=== PATIENT | male | born 1955 | race Caucasian/White ===

== ENCOUNTER → 2017-01-09 | Outpatient (CLI) | payer BC, OTHER ==
[2017-01-09 13:47] LABS: ESTIMATED AVERAGE GLUCOSE 146 mg/dl; HA1C FLAG Normal (Normal); THYROID STIMULATING HORMONE 0.039 uIu/ml (0.300-4.500)
== END | disposition home or self-care (01) ==
LOC: C.LAB 12:23
DX: E03.9 Hypothyroidism, unspecified (principal); E11.9 Type 2 diabetes mellitus without complications; E78.5 Hyperlipidemia, unspecified

== ENCOUNTER 2024-05-07 01:58 | Inpatient (IN) ==
[2024-05-07] MEDS: fentaNYL citrate PF 100 MCG/2 ML VIAL IV PRN (02:39)
[2024-05-07] MEDS: ONDANSETRON INJ 2 MG/ML 2 ML VIAL IV STA (02:39)
[2024-05-07 02:51] LABS: Basophils # (auto) 0.09 K/uL (0.00-0.20); Basophils % (auto) 0.9 %; Eosinophils # (auto) 0.12 K/uL (0.00-0.50); Eosinophils % (auto) 1.1 %; Hematocrit (blood only) 41.1 % (42.0-52.0); Hemoglobin 14.5 g/dl (14.0-18.0); Immature Granulocytes # (auto) 0.04 K/uL (0.01-0.20); Immature Granulocytes % (auto) 0.4 %; Lymphocytes # (auto) 1.02 K/uL (1.20-3.40); Lymphocytes % (auto) 9.8 %; Mean Corpuscular Hemoglobin 31.1 pg (25.0-34.0); Mean Corpuscular Hgb Conc 35.3 g/dL (32.0-36.0); Mean Corpuscular Volume 88.2 fL (80.0-100.0); Mean Platelet Volume 9.7 fL (9.4-12.4); Monocytes # (auto) 0.99 K/uL (0.11-0.59); Monocytes % (auto) 9.5 %; Neutrophils # (auto) 8.18 K/uL (1.40-6.50); Neutrophils % (auto) 78.3 %; Platelet Count 155 K/uL (130-400); RDW Coefficient of Variation 12.9 % (11.5-14.5); RDW Standard Deviation 41.9 fL (36.4-46.3); Red Blood Count 4.66 M/uL (4.70-6.10); White Blood Count 10.44 K/ul (4.8-10.8)
[2024-05-07 03:05] LABS: Albumin Globulin Ratio 1.7 (0.9-2); Albumin Level 4.4 gm/dl (3.4-5.0); BUN Creatinine Ratio 16.3 (10-20); Bilirubin,Total 0.7 mg/dl (0.2-1.0); Creatinine Clr Calc Pharmacy 103.1 ml/min; Est GFR (African American) 92.7 ml/min; Globulin 2.6 gm/dl (2.5-4.0); Potassium 3.7 mmol/L (3.5-5.1)
--- NOTE | 2024-05-07 03:18 | Emergency Department Note ---
History of Present Illness General Chief complaint: Flank Pain Stated complaint: FLANK PAIN Time Seen by Provider: 05/07/24 02:04 History of Present Illness Maximum Pain Intensity: 7 This 68-year-old male presents ER complaining of severe left flank pain that radiates around. Patient denies fever, chills, trauma to the area, urinary symptoms, history of kidney stones, rash, testicular pain, penile pain. No history of similar symptoms in the past. Pain started a few hours ago. Home Medications Medication Instructions Recorded Confirmed Type blood-glucose meter (OneTouch #1 ea 11/01/22 05/07/24 Rx Verio Flex Start kit) blood sugar diagnostic (OneTouch #100 ea 05/06/23 05/07/24 Rx Verio test strips) pen needle, diabetic 32 gauge x #200 ea 05/29/23 05/07/24 Rx 5/32" (BD Jessica 2nd Gen Pen Needle) multivitamin 1 tab PO DAILY 06/09/23 05/07/24 History lisinopril 5 mg tablet 5 mg PO QAM #90 tabs 08/26/23 05/07/24 Rx pioglitazone 30 mg tablet 30 mg PO QAM #90 tabs 02/25/24 05/07/24 Rx Mounjaro 10 mg/0.5 mL subcutaneous 10 mg (0.5 mL) subcut WK #2 mL 04/26/24 05/07/24 Rx pen injector (tirzepatide) insulin aspar prot-insulin aspart 55 unit (0.55 mL) subcut BID #30 mL 04/26/24 05/07/24 Rx 100 unit/mL (70-30) subcutaneous pen (Novolog Mix 70-30FlexPen U-100) metformin 500 mg tablet,extended 1,000 mg (2 x 500 mg) PO BID #360 04/30/24 05/07/24 Rx release 24 hr tabs levothyroxine 150 mcg tablet 150 mcg PO QAM #90 tabs 05/03/24 05/07/24 Rx rosuvastatin 20 mg tablet 20 mg PO QPM 05/07/24 05/07/24 History Allergies Allergy/AdvReac Type Severity Reaction Status Date / Time Penicillins Allergy Unknown HAPPENED Verified 02/16/24 14:17 A BABY Past Med/Surg History Problem List (Updated 05/07/24 @ 03:44 by Gabrielle Dahl PA-C) Ureterolithiasis (Acute) Renal colic on left side (Acute) Obesity Type 2 diabetes mellitus with obesity Hypothyroid Sleep apnea on cpap Dyslipidemia SALINAS (nonalcoholic steatohepatitis) Medical History Umbilical hernia Diverticulosis Colonic polyp Actinic keratosis Giant cell granuloma Cataract Surgical History S/P colonoscopy 09/2022 repeat 5 yrs History of tonsillectomy and adenoidectomy History of cataract surgery R eye Family History Father Brain cancer type of brain cancer not sure what Stomach cancer Mother Diabetes Hypertension Myocardial infarction CHF (congestive heart failure) Sister ALS (amyotrophic lateral sclerosis) Denies family history of Ovarian cancer Prostate cancer Breast cancer Colorectal cancer Social History Smoking Status: Never smoker Second Hand Exposure: No; Do You Dip or Chew Tobacco: No; Hx Alcohol Use: No Hx Substance Use: No Preferred Language: [place] Islander Communication Ability: Effective Visual Impairment: Limited Hearing Ability: Normal marital status: Current Living Situation: Spouse current occupational status: employed How many Children do You have: 2 Feels Safe at Home: Yes Childhood Exposure to Second-Hand Smoke: Yes caffeine: Yes (diet soda, iced tea) Dental Care, Regularly: Yes Physical Activity Frequency: Daily Physical Activity Frequency Comment: walks 10,000-15,000 steps daily Seatbelt Use: always Sunscreen Use: Yes Assistive Devices: Glasses Review of Systems A total of 10 systems reviewed and were otherwise negative Physical Exam Vital Signs Vital Signs - 24 hr 05/07/24 02:01 05/07/24 03:00 05/07/24 04:00 Temperature 36.7 C Temperature Source Temporal Artery Scan Pulse Rate 102 H Pulse Rate [Right Finger] 94 H 92 H Pulse Rhythm [Right Finger] Regular Respiratory Rate 18 18 Respiratory Effort / Characteristics Non-Labored Respiratory Depth Normal Respiratory Pattern Regular Blood Pressure 138/81 Blood Pressure [Left Arm] 142/78 H 138/79 Blood Pressure Mean 100 Blood Pressure Mean [Left Arm] 99 98 Blood Pressure Position [Left Arm] Lying Pulse Oximetry 97 95 94 Oxygen Delivery Method Room Air Room Air Sepsis Recent Fever Within 48 Hours No Sepsis New/Unexplained Change in Mental Status No Sepsis Action Taken by Nursing No Action Required 05/07/24 05:00 Temperature Temperature Source Pulse Rate Pulse Rate [Right Finger] 97 H Pulse Rhythm [Right Finger] Respiratory Rate 22 Respiratory Effort / Characteristics Respiratory Depth Respiratory Pattern Blood Pressure Blood Pressure [Left Arm] 105/64 Blood Pressure Mean Blood Pressure Mean [Left Arm] 77 Blood Pressure Position [Left Arm] Pulse Oximetry 95 Oxygen Delivery Method Sepsis Recent Fever Within 48 Hours Sepsis New/Unexplained Change in Mental Status Sepsis Action Taken by Nursing VITALS: Vitals are noted on the nurse's note and reviewed by myself. Vital signs stable. GENERAL: Pleasant gentleman, in no acute distress, nondiaphoretic, well- developed well-nourished. SKIN: Capillary reflex less than 2 seconds. HEENT: Normocephalic. PERRLA. EOMI. Nares patent. Mucous membranes moist. Neck is supple without nuchal rigidity. HEART: Regular rate and rhythm LUNGS: Clear to auscultation bilaterally without wheezes, rales or rhonchi. No retractions or accessory muscle use. ABDOMEN: Positive bowel sounds x 4. Normal tympanic percussion. Soft, nontender, without masses or organomegaly. Birch sign negative. No guarding or rebound tenderness. no CVA tenderness MUSCULOSKELETAL: No gross musculoskeletal defects. NEURO: Patient was alert and oriented to person place and time. No focal neurological deficits. Course Administered Medications Fentanyl Citrate (Fentanyl Citrate Pf 100 Mcg/2 Ml Vial) 50 mcg IV Q15M PRN PRN Reason: Pain Stop: 05/21/24 02:13 Last Admin: 05/07/24 02:39 Dose: 50 mcg Documented By: ARIADNA Discontinued Medications Ioversol (Optiray 320 100ml) 92 ml IV ONCE ONE Stop: 05/07/24 03:31 Last Admin: 05/07/24 03:31 Dose: 92 ml Documented By: VIRGINIE Ketorolac Tromethamine (Ketorolac Tromethamine 15 Mg/Ml Vial) 10 mg IV NOW STA Stop: 05/07/24 03:43 Last Admin: 05/07/24 03:53 Dose: 10 mg Documented By: ARIADNA Ondansetron HCl (Ondansetron Inj 2 Mg/Ml 2 Ml Vial) 4 mg IV NOW STA Stop: 05/07/24 02:15 Last Admin: 05/07/24 02:39 Dose: 4 mg Documented By: Medical Decision Making Medical Records Attestation: I reviewed the patient's medical records. Home Medications Current Medication List: was personally reviewed by me Laboratory Data Attestation: I reviewed the patient's lab results. 05/07/24 02:30 05/07/24 02:30 Lab Results 05/07/24 05/07/24 Range/Units 02:15 02:30 WBC 10.44 (4.8-10.8) K/ul RBC 4.66 L (4.70-6.10) M/uL Hgb 14.5 (14.0-18.0) g/dl Hct 41.1 L (42.0-52.0) % MCV 88.2 (80.0-100.0) fL MCH 31.1 (25.0-34.0) pg MCHC 35.3 (32.0-36.0) g/dL RDW Std Deviation 41.9 (36.4-46.3) fL RDW Coeff of Leonidas 12.9 (11.5-14.5) % Plt Count 155 (130-400) K/uL MPV 9.7 (9.4-12.4) fL Immature Gran % (Auto) 0.4 % Neut % (Auto) 78.3 % Lymph % (Auto) 9.8 % Frontier % (Auto) 9.5 % Eos % (Auto) 1.1 % Baso % (Auto) 0.9 % Neut # (Auto) 8.18 H (1.40-6.50) K/uL Lymph # (Auto) 1.02 L (1.20-3.40) K/uL Frontier # (Auto) 0.99 H (0.11-0.59) K/uL Eos # (Auto) 0.12 (0.00-0.50) K/uL Baso # (Auto) 0.09 (0.00-0.20) K/uL Immature Gran # (Auto) 0.04 (0.01-0.20) K/uL Sodium 138 (136-145) mmol/L Potassium 3.7 (3.5-5.1) mmol/L Chloride 106 (98-107) mmol/L Carbon Dioxide 22 (21-32) mmol/L Anion Gap 10 (3-11) BUN 16 (6-23) mg/dl Creatinine 0.98 (0.6-1.4) mg/dl Est Cr Clr Drug Dosing 103.1 ml/min Est GFR ( Amer) 92.7 ml/min Est GFR (Non-Af Amer) 80.0 ml/min BUN/Creatinine Ratio 16.3 (10-20) Glucose 189 H (70-99(Fasting)) mg/dl Calcium 9.0 (8.6-10.3) mg/dl Total Bilirubin 0.7 (0.2-1.0) mg/dl AST 36 (13-39) U/L ALT 34 (7-52) U/L Alkaline Phosphatase 57 (34-104) U/L Total Protein 7.0 (6.0-8.3) gm/dl Albumin 4.4 (3.4-5.0) gm/dl Globulin 2.6 (2.5-4.0) gm/dl Albumin/Globulin Ratio 1.7 (0.9-2) Lipase 47 (11-82) U/L Urine Color Yellow Urine Appearance Cloudy A (Clear) Urine pH 5.5 (4.5-7.5) Ur Specific [place] 1.029 (1.000-1.030) Urine Protein Trace H (Negative) Urine Glucose (UA) 3+ H (Negative) Urine Ketones 1+ H (Negative) Urine Blood 3+ H (Negative) Urine Nitrite Negative (Negative) Urine Bilirubin Negative (Negative) Urine Urobilinogen Negative (Negative) Ur Leukocyte Esterase Negative (Negative) Urine WBC (Auto) 0-5 (0-5) /hpf Urine RBC (Auto) 11-20 H (0-2) /hpf U Hyaline Cast (Auto) 0-2 (0-2) /lpf U Epithel Cells (Auto) 0-2 (0-2) /hpf Urine Bacteria (Auto) None Seen (None Seen) Imaging Data Attestation: I personally reviewed and interpreted this imaging study as follows: Radiologist's Impression: Abdomen/Pelvis CT 05/07/24 02:14 Exam(s): CT ABDOMEN + PELVIS With Contrast IV Amt: 92 ml opti 320 EXAM: CT Abdomen and Pelvis With Intravenous Contrast CLINICAL HISTORY: left flank/abd pain. TECHNIQUE: Axial computed tomography images of the abdomen and pelvis with intravenous contrast. CTDI is 28.14 mGy and DLP is 1626.47 mGy-cm. Automated exposure control was utilized for the study. A dose lowering technique was utilized adhering to the principles of ALARA. CONTRAST: Patient received 92 ml opti 320 of IV contrast COMPARISON: No relevant prior studies available. FINDINGS: Lung bases: Unremarkable. No mass. No consolidation. ABDOMEN: Liver: Hepatic steatosis. Gallbladder and bile ducts: Unremarkable. No calcified stones. No ductal dilation. Pancreas: Unremarkable. No mass. No ductal dilation. Spleen: Unremarkable. No splenomegaly. Adrenals: Unremarkable. No mass. Kidneys and ureters: 6.3 mm proximal left ureteral stone approximately 2 cm beyond the UPJ with mild left hydronephrosis and perinephric fat stranding. Kidneys demonstrate normal enhancement bilaterally. No additional nephrolithiasis identified bilaterally. No right sided hydronephrosis. Stomach and bowel: Stomach is decompressed. No gastric mucosal thickening. No bowel obstruction. No asymmetric bowel mucosal abnormality. Mild to moderate stool burden. PELVIS: Appendix: A normal caliber appendix is noted medial to the cecum. Bladder: Unremarkable. No mass. Reproductive: Unremarkable as visualized. ABDOMEN and PELVIS: Intraperitoneal space: Unremarkable. No free air. No significant fluid collection. Bones/joints: No acute fracture. No dislocation. Soft tissues: Stable periumbilical fat-containing hernia, slightly increased in size, now measuring 1 cm in transverse diameter. Vasculature: Unremarkable. No abdominal aortic aneurysm. Lymph nodes: Unremarkable. No enlarged lymph nodes. IMPRESSION: 6.3 mm proximal left ureteral stone approximately 2 cm beyond the UPJ with mild left hydronephrosis and perinephric fat stranding. Electronically signed by: Zion Ramos MD 05/07/24 04:13 AM [facility] Narrative Prior records/ancillary studies reviewed. Triage Nursing notes reviewed. Additional history obtained from the nursing The patient's history was concerning for flank pain. Differential diagnosis: Etiologies such as renal colic, appendicitis, diverticulitis, mesenteric ischemia, aortic pathology, infections, inflammatory bowel disease, PUD, biliary pathology, UTI, as well as others were entertained. Physical examination findings: As above. ER treatment provided: Fentanyl, Zofran, IV fluids On reassessment the patient felt better. Diagnostic interpretation by me: The labs Independently Interpreted by myself revealed no worrisome leukocytosis. Urinalysis revealed There was no sign of UTI. Mild hyperglycemia without DKA Imaging studies: Imaging as above Consultation: A consultation was placed with the hospitalist. The case was discussed and diagnostics were reviewed. The patient was evaluated in the ER for further treatment. It appears that the patient has isolated renal colic from a left sided stone. Patient was still moderate amount of pain. Medicine is consulted case discussed. He will be admitted to the medical service. By the evaluation outlined above emergent etiologies such as appendicitis, diverticulitis, mesenteric ischemia, aortic pathology, infections, inflammatory bowel disease, PUD, biliary pathology, UTI, as well as others were deemed relatively unlikely. The pt informed about the findings as listed above. All questions were answered and pleased with the treatment. The chart was completed utilizing [employer] Speech voice recognition software. Grammatical errors, random word insertions, pronoun errors, and incomplete sentences are an occassional consequence of this system due to software limitations, ambient noise, and hardware issues. Any formal questions or concerns about the content, text, or information contained within the body of this dictation should be directly addressed to the physician night assistant for clarification. Attending Attestation: I Perez Parada MD I have reviewed the advanced practitioner's documentation and agree with the plan of care. I accept the responsibility for the associated risk of managing the patient. Impression & Plan Renal colic on left side, Ureterolithiasis Discharge Plan Visit Data Chief Complaint: Flank Pain Stated Complaint: FLANK PAIN ED Provider: Perez Parada ED Midlevel Provider: Gabrielle Dahl Discharge Problem: Renal colic on left side, Ureterolithiasis Patient Disposition: Admitted As Inpatient Condition: Good Discharge Instructions Prabhakar/Other Patient Handouts: ED [facility] Forms Stand Alone Forms: Important Visit Information Prescriptions Prescriptions: No Action (DME) OneTouch Verio test strips Strip See Rx Instructions .Route Qty: 100 2RF Rx Instructions: twice daily (DME) pen needle, diabetic [BD Jessica 2nd Gen Pen Needle] 32 gauge x 5/32" needle See Rx Instructions .Route Qty: 200 3RF Rx Instructions: As directed to inject insulin two times a day lisinopril 5 mg tablet 5 mg PO QAM Qty: 90 3RF pioglitazone 30 mg tablet 30 mg PO QAM Qty: 90 3RF insulin asp prt-insulin aspart [Novolog Mix 70-30FlexPen U-100] 100 unit/mL (70-30) insulin pen 55 unit subcut BID Qty: 30 3RF Rx Instructions: or as directed before meals Mounjaro 10 mg/0.5 mL pen injector 10 mg subcut WK Qty: 2 3RF metformin 500 mg tablet extended release 24 hr 1,000 mg PO BID Qty: 360 3RF Rx Instructions: *Replaces Xigduo* levothyroxine 150 mcg tablet 150 mcg PO QAM Qty: 90 1RF multivitamin Tablet 1 tab PO DAILY (DME) blood-glucose meter [OneTouch Verio Flex Start] Kit See Rx Instructions .Route Qty: 1 0RF Rx Instructions: twice daily rosuvastatin 20 mg tablet 20 mg PO QPM Referrals Referrals: Gokul Carnes DO [Primary Care Provider] - Matt Stafford MD [Physician] -
[2024-05-07] MEDS: OPTIRAY 320 100ml IV ONE (03:31)
[2024-05-07 03:36] LABS: Appearance Urine Cloudy (Clear); Bacteria Urine Automated None Seen (None Seen); Bilirubin Urine Negative (Negative); Blood Urine 3+ (Negative); Cast Urine Automated 0-2 /lpf (0-2); Color Urine Yellow; Epithelial Cell Urine Auto 0-2 /hpf (0-2); Glucose Urine UA 3+ (Negative); Ketones Urine 1+ (Negative); Leukocyte Esterase Urine Negative (Negative); Nitrite Urine Negative (Negative); Protein Urine Trace (Negative); Specific Gravity Urine 1.029 (1.000-1.030); Urobilinogen Urine Negative (Negative); WBC Urine Automated 0-5 /hpf (0-5); pH Urine 5.5 (4.5-7.5)
[2024-05-07] MEDS: KETOROLAC TROMETHAMINE 15 MG/ML VIAL IV STA (03:53)
--- NOTE | 2024-05-07 04:13 | CT Scan Report ---
Exam(s): CT ABDOMEN + PELVIS With Contrast IV Amt: 92 ml opti 320 EXAM: CT Abdomen and Pelvis With Intravenous Contrast CLINICAL HISTORY: left flank/abd pain. TECHNIQUE: Axial computed tomography images of the abdomen and pelvis with intravenous contrast. CTDI is 28.14 mGy and DLP is 1626.47 mGy-cm. Automated exposure control was utilized for the study. A dose lowering technique was utilized adhering to the principles of ALARA. CONTRAST: Patient received 92 ml opti 320 of IV contrast COMPARISON: No relevant prior studies available. FINDINGS: Lung bases: Unremarkable. No mass. No consolidation. ABDOMEN: Liver: Hepatic steatosis. Gallbladder and bile ducts: Unremarkable. No calcified stones. No ductal dilation. Pancreas: Unremarkable. No mass. No ductal dilation. Spleen: Unremarkable. No splenomegaly. Adrenals: Unremarkable. No mass. Kidneys and ureters: 6.3 mm proximal left ureteral stone approximately 2 cm beyond the UPJ with mild left hydronephrosis and perinephric fat stranding. Kidneys demonstrate normal enhancement bilaterally. No additional nephrolithiasis identified bilaterally. No right sided hydronephrosis. Stomach and bowel: Stomach is decompressed. No gastric mucosal thickening. No bowel obstruction. No asymmetric bowel mucosal abnormality. Mild to moderate stool burden. PELVIS: Appendix: A normal caliber appendix is noted medial to the cecum. Bladder: Unremarkable. No mass. Reproductive: Unremarkable as visualized. ABDOMEN and PELVIS: Intraperitoneal space: Unremarkable. No free air. No significant fluid collection. Bones/joints: No acute fracture. No dislocation. Soft tissues: Stable periumbilical fat-containing hernia, slightly increased in size, now measuring 1 cm in transverse diameter. Vasculature: Unremarkable. No abdominal aortic aneurysm. Lymph nodes: Unremarkable. No enlarged lymph nodes. IMPRESSION: 6.3 mm proximal left ureteral stone approximately 2 cm beyond the UPJ with mild left hydronephrosis and perinephric fat stranding. Electronically signed by: Zion Ramos MD 05/07/24 04:13 AM
--- NOTE | 2024-05-07 05:02 | History & Physical Report ---
Date of Service May 07, 2024 Assessment & Plan (1) Ureterolithiasis: Plan: -CT abdomen pelvis showed a 6.3 mm proximal left ureteral stone. Left mild hydronephrosis and perinephritic fat stranding. -CBC and CMP benign. -UA showing 3+ blood and 3+ glucose. -IV fluids, prn pain meds, prn antiemetics -Started on ceftriaxone and tamsulosin. -Will collect blood cultures prior to antibiotics. -Urology consulted, n.p.o. at this time. (2) Type 2 diabetes mellitus with obesity: Plan: -Patient's home regimen held on admission -Continue BSG checks, sliding-scale insulin, hypoglycemic protocol (3) Hypothyroid: Plan: -Holding home levothyroxine while NPO. (4) Sleep apnea: Plan: -CPAP at night. Patient brought in his CPAP. (5) Dyslipidemia: Plan: -Holding home rosuvastatin while NPO. Plan Fluids: LR at 125 mL an hour Nutrition: N.p.o. Code status: Full code DVT ppx: SCDs Dispo: med/surg History of Present Illness Chief Complaint: left renal colic, ureterolithiasis Primary Care Provider: Gokul Carnes DO Patient is a 68-year-old male with past medical history of hypothyroidism, sleep apnea, dyslipidemia, and SALINAS who presents to the hospital with left renal colic. Patient started to have left-sided back/flank pain. He states that he he tried to sleep but then was unable to do came to the ED. Denies any passing of stone. Denies any fever, chills, shortness of breath, fevers, dysuria, urinary frequency or urgency. Allergies Allergy/AdvReac Type Severity Reaction Status Date / Time Penicillins Allergy Unknown HAPPENED Verified 02/16/24 14:17 A BABY Home Medications Medication Instructions Recorded Confirmed Type blood-glucose meter (OneTouch #1 ea 11/01/22 05/07/24 Rx Verio Flex Start kit) blood sugar diagnostic (OneTouch #100 ea 05/06/23 05/07/24 Rx Verio test strips) pen needle, diabetic 32 gauge x #200 ea 05/29/23 05/07/24 Rx 5/32" (BD Jessica 2nd Gen Pen Needle) multivitamin 1 tab PO DAILY 06/09/23 05/07/24 History lisinopril 5 mg tablet 5 mg PO QAM #90 tabs 08/26/23 05/07/24 Rx pioglitazone 30 mg tablet 30 mg PO QAM #90 tabs 02/25/24 05/07/24 Rx Mounjaro 10 mg/0.5 mL subcutaneous 10 mg (0.5 mL) subcut WK #2 mL 04/26/24 05/07/24 Rx pen injector (tirzepatide) insulin aspar prot-insulin aspart 55 unit (0.55 mL) subcut BID #30 mL 04/26/24 05/07/24 Rx 100 unit/mL (70-30) subcutaneous pen (Novolog Mix 70-30FlexPen U-100) metformin 500 mg tablet,extended 1,000 mg (2 x 500 mg) PO BID #360 04/30/24 05/07/24 Rx release 24 hr tabs levothyroxine 150 mcg tablet 150 mcg PO QAM #90 tabs 05/03/24 05/07/24 Rx rosuvastatin 20 mg tablet 20 mg PO QPM 05/07/24 05/07/24 History Past Med/Surg History Problem List (Updated 05/07/24 @ 03:44 by Gabrielle Dahl PA-C) Ureterolithiasis (Acute) Renal colic on left side (Acute) Obesity Type 2 diabetes mellitus with obesity Hypothyroid Sleep apnea on cpap Dyslipidemia SALINAS (nonalcoholic steatohepatitis) Medical History Umbilical hernia Diverticulosis Colonic polyp Actinic keratosis Giant cell granuloma Cataract Surgical History S/P colonoscopy 09/2022 repeat 5 yrs History of tonsillectomy and adenoidectomy History of cataract surgery R eye Family History Father Brain cancer type of brain cancer not sure what Stomach cancer Mother Diabetes Hypertension Myocardial infarction CHF (congestive heart failure) Sister ALS (amyotrophic lateral sclerosis) Denies family history of Ovarian cancer Prostate cancer Breast cancer Colorectal cancer Social History Smoking Status: Never smoker Second Hand Exposure: No; Do You Dip or Chew Tobacco: No; Hx Alcohol Use: No Hx Substance Use: No Preferred Language: [place]ish Communication Ability: Effective Visual Impairment: Limited Hearing Ability: Normal marital status: Current Living Situation: Spouse current occupational status: employed How many Children do You have: 2 Feels Safe at Home: Yes Childhood Exposure to Second-Hand Smoke: Yes caffeine: Yes (diet soda, iced tea) Dental Care, Regularly: Yes Physical Activity Frequency: Daily Physical Activity Frequency Comment: walks 10,000-15,000 steps daily Seatbelt Use: always Sunscreen Use: Yes Assistive Devices: Glasses Review of Systems Review of Systems: All systems reviewed & are unremarkable except as noted in Subjective Physical Exam Physical Exam: Constitutional: well-appearing, no acute distress HEENT: NCAT, no conjunctival injection CV: regular rhythm, no murmur appreciated, extremities well-perfused, no LE edema Resp: CTABL, no wheezes/rales/rhonchi appreciated, no increased work of breathing GI: soft, nondistended, nontender, BS normoactive MSK: Left-sided costovertebral tenderness, left flank pain Skin: warm, dry, no rash appreciated Neuro: alert, oriented, no focal neurologic deficit appreciated Results & Data Results & Data Vital Signs (Past 12 Hours) Vital Signs Temp Pulse BP Pulse Ox O2 Del Method 05/07/24 02:01 36.7 C 102 H 138/81 97 Room Air Supervising Physician Co-Signing Physician Notes Attending addendum: I have supervised the medical residents activities, and agree with the H&P unless as otherwise noted. Assessment and Plan: 6.3 mm proximal left ureteral stone/mild left hydronephrosis- NPO Follow urine culture and sensitivity Ceftriaxone 2 g IV daily Start tamsulosin 0.4 mg every morning Pain control as noted Consult urology Diabetes mellitus- Hold metformin, Mounjaro and pioglitazone Hold 70-30 55 twice daily as is nonformulary Placed on glargine 20 units subcu twice daily Placed on Accu-Cheks with NovoLog SSI
[2024-05-07] MEDS ORDERED: GLUCOSE 40% GEL 15 GM TUBE PO PRN (05:49)
[2024-05-07] MEDS ORDERED: GLUCOSE 10 TAB/TUBE PO PRN (05:49)
[2024-05-07] MEDS ORDERED: CARBOHYDRATES FOR HYPOGLYCEMIA PO PRN (05:49)
[2024-05-07] MEDS ORDERED: GLUCAGON FOR INJ 1 MG VIAL SQ PRN (05:49)
[2024-05-07] MEDS ORDERED: DEXTROSE 50% 50 ML SYRINGE IV PRN (05:49)
[2024-05-07] MEDS ORDERED: ONDANSETRON INJ 2 MG/ML 2 ML VIAL IV PRN (05:49)
[2024-05-07] MEDS ORDERED: KETOROLAC TROMETHAMINE 15 MG/ML VIAL IV PRN (05:49)
[2024-05-07] MEDS: LACTATED RINGER'S 1,000 ML IV SCH (06:04)
[2024-05-07] MEDS: TAMSULOSIN HCL 0.4 MG CAP PO ONE (06:16)
--- NOTE | 2024-05-07 06:22 | Billing Data ---
Date of Service May 07, 2024 Coding Level of Care Code 79277 INT INP/OBS CARE
[2024-05-07] MEDS: INSULIN ASPART PER UNIT CHARGE SC SCH ×2 (06:41→12:10)
[2024-05-07] MEDS: cefTRIAXone SODIUM 2,000 MG/50 ML BAG IV SCH (06:45)
[2024-05-07] MEDS ORDERED: INSULIN ASPART PER UNIT CHARGE SC SCH (07:30)
--- NOTE | 2024-05-07 08:23 | Urology Consultation ---
Date of Consultation May 07, 2024 Assessment & Plan (1) Ureterolithiasis: (2) Renal colic on left side: 68-year-old male admitted for left renal colic secondary to an obstructing left proximal ureteral stone Patient afebrile and hemodynamically stable Labs reviewedcreatinine 0.98, WBC 10.44 Urinalysis on arrival was not suggestive of infection Pain has been controlled We discussed options for stone management including trial of passage versus surgical options Discussed ureteral stent today and stone treatment at a later date vs outpatient surgical options After discussion, he prefers outpatient surgical management Okay to have diet this morning, can be discharged to home when medically stable Will arrange urology follow-up next week to discuss definitive stone treatment Will order KUB and urine culture to be done prior to discharge for preoperative planning Recommend discharge to home with tamsulosin, as needed analgesia and antiemetics will sign off, please contact our service with any additional questions or concerns History of Present Illness Attending Physician: Luz Holden MD History of Present Illness This is a 68-year-old male with history of sleep apnea, dyslipidemia, SALINAS, type 2 diabetes, and obesity who presented to the emergency department today for evaluation of left flank pain. On arrival, he was afebrile and hemodynamically stable. Labs showed creatinine 0.98, WBC 10.44, hemoglobin 14.5. Urinalysis showed 3+ glucose, 3+ blood, 11-20 RBC and was negative for bacteria. CT abdomen pelvis notable for a 6.3 mm proximal left ureteral stone in the left proximal ureter with mild left hydronephrosis and perinephric fat stranding. He was treated with fentanyl, ketorolac and ondansetron in the emergency department. He was admitted to the hospital medicine service. Patient seen and examined at bedside this morning. He is asleep with CPAP in place, arouses easily to his name. He reports no flank pain at present. Denies nausea, vomiting, fever or chills. He is voiding spontaneously, denies dysuria or hematuria. This is a first kidney stone for him. No known family history of kidney stones. Allergies Allergy/AdvReac Type Severity Reaction Status Date / Time Penicillins Allergy Unknown HAPPENED Verified 02/16/24 14:17 A BABY Home Medications Medication Instructions Recorded Confirmed Type blood-glucose meter (OneTouch #1 ea 11/01/22 05/07/24 Rx Verio Flex Start kit) blood sugar diagnostic (OneTouch #100 ea 05/06/23 05/07/24 Rx Verio test strips) pen needle, diabetic 32 gauge x #200 ea 05/29/23 05/07/24 Rx 5/32" (BD Jessica 2nd Gen Pen Needle) multivitamin 1 tab PO DAILY 06/09/23 05/07/24 History lisinopril 5 mg tablet 5 mg PO QAM #90 tabs 08/26/23 05/07/24 Rx pioglitazone 30 mg tablet 30 mg PO QAM #90 tabs 02/25/24 05/07/24 Rx Mounjaro 10 mg/0.5 mL subcutaneous 10 mg (0.5 mL) subcut WK #2 mL 04/26/24 05/07/24 Rx pen injector (tirzepatide) insulin aspar prot-insulin aspart 55 unit (0.55 mL) subcut BID #30 mL 04/26/24 05/07/24 Rx 100 unit/mL (70-30) subcutaneous pen (Novolog Mix 70-30FlexPen U-100) metformin 500 mg tablet,extended 1,000 mg (2 x 500 mg) PO BID #360 04/30/24 05/07/24 Rx release 24 hr tabs levothyroxine 150 mcg tablet 150 mcg PO QAM #90 tabs 05/03/24 05/07/24 Rx rosuvastatin 20 mg tablet 20 mg PO QPM 05/07/24 05/07/24 History Patient History Medical History Umbilical hernia Diverticulosis Colonic polyp Actinic keratosis Giant cell granuloma Cataract Surgical History S/P colonoscopy 09/2022 repeat 5 yrs History of tonsillectomy and adenoidectomy History of cataract surgery R eye Family History Father Brain cancer type of brain cancer not sure what Stomach cancer Mother Diabetes Hypertension Myocardial infarction CHF (congestive heart failure) Sister ALS (amyotrophic lateral sclerosis) Denies family history of Ovarian cancer Prostate cancer Breast cancer Colorectal cancer Social History Smoking Status: Never smoker Second Hand Exposure: No; Do You Dip or Chew Tobacco: No; Hx Alcohol Use: No (very rarely) Hx Substance Use: No Preferred Language: [place]an Communication Ability: Effective Visual Impairment: Limited Hearing Ability: Normal 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 Beliefs That Will Affect Care: None marital status: Current Living Situation: Alone current occupational status: employed How many Children do You have: 2 Feels Safe at Home: Yes Safety Concerns: Feels Safe At This Time Childhood Exposure to Second-Hand Smoke: Yes caffeine: Yes (diet soda, iced tea) Dental Care, Regularly: Yes Physical Activity Frequency: Daily Physical Activity Frequency Comment: walks 10,000-15,000 steps daily Seatbelt Use: always Sunscreen Use: Yes Assistive Devices: CPAP and Glasses Review of Systems Review of Systems: All systems reviewed & are unremarkable except as noted in HPI & below Physical Exam Constitutional: well developed and well nourished; no acute distress Respiratory: normal respiratory effort; no respiratory distress and no labored breathing Gastrointestinal (Abdomen): Inspection/Auscultation: abdomen normal to inspection Musculoskeletal: Head/Neck/Chest: normocephalic Neurologic: moves all extremities and awake Psychiatric: Orientation: alert and oriented x 3 Results & Data Vital Signs (Past 12 Hours) Vital Signs Temp Pulse Pulse Resp BP BP Pulse Ox 05/07/24 07:35 05/07/24 06:18 36.4 C L 96 H 16 118/77 96 05/07/24 06:01 36.4 C L 96 H 16 118/77 94 05/07/24 05:30 92 H 18 143/83 H 96 05/07/24 05:00 97 H 22 105/64 95 05/07/24 04:00 92 H 18 138/79 94 05/07/24 03:00 94 H 18 142/78 H 95 05/07/24 02:01 36.7 C 102 H 138/81 97 O2 Del Method 05/07/24 07:35 Room Air, CPAP 05/07/24 06:18 Room Air 05/07/24 06:01 Room Air 05/07/24 05:30 CPAP 05/07/24 05:00 05/07/24 04:00 05/07/24 03:00 Room Air 05/07/24 02:01 Room Air PG Care Time/CCT Total # of Minutes Spent Total Time Spent with Patient: Total time spent is greater than 50% in coordination of care (as documented) at patient's floor/unit and/or counseling patient: Coding Level of Care Code 87252 IN/OBS CONSULT LVL 4,60M Diagnoses Ureterolithiasis N20.1 Renal colic on left side N23
[2024-05-07] MEDS: LANTUS PER UNIT CHARGE SQ SCH (08:59)
[2024-05-07] MEDS ORDERED: Nursing to Pharmacy Communication SCH (09:15)
--- NOTE | 2024-05-07 09:39 | XRay Report ---
KUB HISTORY: Follow-up study in a patient with a left ureteral calculus and hydronephrosis left proximal stone COMPARISON: CT abdomen and pelvis of same day at 3:24 AM FINDINGS: Nonobstructive bowel gas pattern. Contrast noted within the urinary bladder lumen, left ure ter and dilated left renal collecting system a normal caliber right renal collecting system. No defi nite urolith identified. Probable persistent calculus of the left ureter at the level of L3-L4. No pn eumoperitoneum or pneumatosis. No fracture. IMPRESSION: 1. Persistent left-sided hydronephrosis with persistent obstructing ureteral calculus at the level of L3-L4. 2. Nonobstructive bowel gas pattern. ACT 112: Negative or not required by law. The above report was generated using voice recognition software. It may contain grammatical, syntax o r spelling errors. Electronically signed by: Von Norris M.D. 05/07/2024 9:38 AM
--- NOTE | 2024-05-07 12:06 | Discharge Summary ---
Discharge Summary Date of Service May 07, 2024 Principal Dx & Hospital Course #1 = Principal Diagnosis (1) Ureterolithiasis: -CT abdomen pelvis showed a 6.3 mm proximal left ureteral stone. Left mild hydronephrosis and perinephritic fat stranding. -CBC and CMP benign. -UA showing 3+ blood and 3+ glucose - no leuks, epis or bacteria - will defer outpatient antibiotics per urology - Urology consulted - plan for outpatient management - discharge with flomax, prn analgesia and antiemetics Urine cultures and blood cultures pending . (2) Type 2 diabetes mellitus with obesity: -Patient's home regimen held on admission -Continue BSG checks, sliding-scale insulin, hypoglycemic protocol (3) Hypothyroid: Continue synthroid . (4) Sleep apnea: -CPAP at night. Patient brought in his CPAP. (5) Dyslipidemia: continue statin Plan Dispo: discharge to home today with urology follow up next week Notes For Next Care Provider 6mm left kidney stone, pain controlled so opted for outpatient urology follow up and treatment. urine cultures and blood cultures pending Medication Changes From Visit prn zofran and tramadol flomax daily Admission HPI Per Admitting Provider Patient is a 68-year-old male with past medical history of hypothyroidism, sleep apnea, dyslipidemia, and SALINAS who presents to the hospital with left renal colic. Patient started to have left-sided back/flank pain. He states that he he tried to sleep but then was unable to do came to the ED. Denies any passing of stone. Denies any fever, chills, shortness of breath, fevers, dysuria, urinary frequency or urgency. Discharge Exam General: NAD, VS as above Resp: normal respiratory effort, lungs clear to auscultation CV: RRR, no murmur, Abd: soft, non tender, no hepatosplenomegaly Back: no CVA tendeness Extremities: Moves all extremities, Neuro: A&O x3, Updated Medication List Medication Instructions Recorded Confirmed Type blood-glucose meter (OneTouch #1 ea 11/01/22 05/07/24 Rx Verio Flex Start kit) blood sugar diagnostic (OneTouch #100 ea 05/06/23 05/07/24 Rx Verio test strips) pen needle, diabetic 32 gauge x #200 ea 05/29/23 05/07/24 Rx 5/32" (BD Jessica 2nd Gen Pen Needle) multivitamin 1 tab PO DAILY 06/09/23 05/07/24 History lisinopril 5 mg tablet 5 mg PO QAM #90 tabs 08/26/23 05/07/24 Rx pioglitazone 30 mg tablet 30 mg PO QAM #90 tabs 02/25/24 05/07/24 Rx Mounjaro 10 mg/0.5 mL subcutaneous 10 mg (0.5 mL) subcut WK #2 mL 04/26/24 05/07/24 Rx pen injector (tirzepatide) insulin aspar prot-insulin aspart 55 unit (0.55 mL) subcut BID #30 mL 04/26/24 05/07/24 Rx 100 unit/mL (70-30) subcutaneous pen (Novolog Mix 70-30FlexPen U-100) metformin 500 mg tablet,extended 1,000 mg (2 x 500 mg) PO BID #360 04/30/24 05/07/24 Rx release 24 hr tabs levothyroxine 150 mcg tablet 150 mcg PO QAM #90 tabs 05/03/24 05/07/24 Rx ondansetron 4 mg disintegrating 4 mg PO Q6H PRN nausea and 05/07/24 Rx tablet vomiting #12 tabs rosuvastatin 20 mg tablet 20 mg PO QPM 05/07/24 05/07/24 History tamsulosin 0.4 mg capsule 0.4 mg PO QAM #14 caps 05/07/24 Rx tramadol 50 mg tablet 50 mg PO Q8H PRN pain #12 tabs 05/07/24 Rx Hospital Stay Data Consultations 05/07/24 04:23 ED Decision to Admit Stat 05/07/24 05:49 Consult Urology Routine Diagnostic Imagining Performed Abdomen/Pelvis CT 05/07/24 02:14 Exam(s): CT ABDOMEN + PELVIS With Contrast IV Amt: 92 ml opti 320 EXAM: CT Abdomen and Pelvis With Intravenous Contrast CLINICAL HISTORY: left flank/abd pain. TECHNIQUE: Axial computed tomography images of the abdomen and pelvis with intravenous contrast. CTDI is 28.14 mGy and DLP is 1626.47 mGy-cm. Automated exposure control was utilized for the study. A dose lowering technique was utilized adhering to the principles of ALARA. CONTRAST: Patient received 92 ml opti 320 of IV contrast COMPARISON: No relevant prior studies available. FINDINGS: Lung bases: Unremarkable. No mass. No consolidation. ABDOMEN: Liver: Hepatic steatosis. Gallbladder and bile ducts: Unremarkable. No calcified stones. No ductal dilation. Pancreas: Unremarkable. No mass. No ductal dilation. Spleen: Unremarkable. No splenomegaly. Adrenals: Unremarkable. No mass. Kidneys and ureters: 6.3 mm proximal left ureteral stone approximately 2 cm beyond the UPJ with mild left hydronephrosis and perinephric fat stranding. Kidneys demonstrate normal enhancement bilaterally. No additional nephrolithiasis identified bilaterally. No right sided hydronephrosis. Stomach and bowel: Stomach is decompressed. No gastric mucosal thickening. No bowel obstruction. No asymmetric bowel mucosal abnormality. Mild to moderate stool burden. PELVIS: Appendix: A normal caliber appendix is noted medial to the cecum. Bladder: Unremarkable. No mass. Reproductive: Unremarkable as visualized. ABDOMEN and PELVIS: Intraperitoneal space: Unremarkable. No free air. No significant fluid collection. Bones/joints: No acute fracture. No dislocation. Soft tissues: Stable periumbilical fat-containing hernia, slightly increased in size, now measuring 1 cm in transverse diameter. Vasculature: Unremarkable. No abdominal aortic aneurysm. Lymph nodes: Unremarkable. No enlarged lymph nodes. IMPRESSION: 6.3 mm proximal left ureteral stone approximately 2 cm beyond the UPJ with mild left hydronephrosis and perinephric fat stranding. Electronically signed by: Zion Ramos MD 05/07/24 04:13 AM KUB X-Ray 05/07/24 08:27 KUB HISTORY: Follow-up study in a patient with a left ureteral calculus and hydronephrosis left proximal stone COMPARISON: CT abdomen and pelvis of same day at 3:24 AM FINDINGS: Nonobstructive bowel gas pattern. Contrast noted within the urinary bladder lumen, left ureter and dilated left renal collecting system a normal caliber right renal collecting system. No definite urolith identified. Probable persistent calculus of the left ureter at the level of L3-L4. No pneumoperitoneum or pneumatosis. No fracture. IMPRESSION: 1. Persistent left-sided hydronephrosis with persistent obstructing ureteral calculus at the level of L3-L4. 2. Nonobstructive bowel gas pattern. ACT 112: Negative or not required by law. The above report was generated using voice recognition software. It may contain grammatical, syntax or spelling errors. Electronically signed by: Von Norris M.D. 05/07/2024 9:38 AM Pending Results Patient Have Any Pending Studies at Discharge: Yes (blood cultures, urine cultures ) Discharge Instructions Given to Patient (Per Discharging Provider) Mr. Wang, You were hospitalized after having left sided back and flank pain. You were found to have a 6mm stone on the left side. You have opted to have outpatient management. You will be discharged with pain control (tramadol), antiemetics (zofran) and flomax. Flomax is to be taken daily. You can take tylenol and ibuprofen as well with the tramadol. If the pain gets worse or if you have any fevers please contact the urology office. You urine did not have signs of infection but there is a urine culture and blood cultures pending. If these turn positive you will be notified, you can also check your portal for these. The follow up appointment for urology is on 05/13 at 10:30. Thank you for allowing us to participate in your care. No changes were made to your home medications. Total Time Total Time Spent Total Time Spent (In Minutes): Time spend day of discharge 33 minutes including direct patient care, medication reconciliation, documentation, review of labs and images, and coordination of care. Supervising Physician Co-Signing Physician Notes SERA Supervision Note: I did not personally see or examine the patient today, but I verified all hernandez points of SERA Palmer's assessment and plan with the following exceptions/additions: None Patient was seen by an attending physician on the same date of service Coding Level of Care Code None Diagnoses Ureterolithiasis N20.1 Type 2 diabetes mellitus with obesity E11.69; E66.9 Hypothyroid E03.9 Sleep apnea G47.30 Dyslipidemia E78.5
[2024-05-08] MEDS ORDERED: TAMSULOSIN HCL 0.4 MG CAP PO SCH (09:00)
== END 2024-05-07 13:05 | disposition home or self-care (01) | DRG 694 ==
LOC: ED 01:58 → 3W 05:09 → SUATTDRO 05:09 → 3W 05:34